=== PATIENT | female | born 1990 | race Caucasian/White ===

== ENCOUNTER 2017-05-04 09:39 | Emergency (ER) | payer OTHER ==
[~2017-05-04] VITALS: Ht 185.4 cm; Wt 147.4 kg
[~2017-05-04 09:39] MED LIST: Bactrim Ds Tab1 EACH PO; CODACE30 PO; NEOPOLHYDS OT
[2017-05-04] MEDS ORDERED: CYCL10 PO (11:01)
[2017-05-04] MEDS ORDERED: Mobic15 MG PO (11:01)
== END 2017-05-04 11:05 | disposition home or self-care (01) ==
LOC: ER 09:39
DX: M54.5 Low back pain (principal); E66.01 Morbid (severe) obesity due to excess calories; Z68.41 Body mass index [BMI] 40.0-44.9, adult
CPT/HCPCS: 99283

== ENCOUNTER → 2017-07-06 | Outpatient (CLI) | payer OTHER ==
[~2017-07-06] MED LIST changes: +CYCL10 PO; +Mobic15 MG PO
[2017-07-06 16:38] LABS: Specimen Source CERVIX
[2017-07-07 10:01] LABS: Source Cervix
[2017-07-08 12:03] LABS: HPV Genotype 16 Not Detected (NOTDET); HPV Genotype 18 Not Detected (NOTDET)
[2017-07-15 08:16] LABS: HPV High Risk Other Not Detected (NOTDET)
[2017-07-18 06:57] LABS: Source Cervix
== END | disposition home or self-care (01) ==
LOC: LAB SHORT 16:32 → OLS 16:32
PROVIDERS: Nurse Practitioner Women's Health
DX: Z12.4 Encounter for screening for malignant neoplasm of cervix (principal); Z11.3 Encounter for screening for infections with a predominantly sexual mode of transmission
CPT/HCPCS: 87491; 87591; 87624; G0123

== ENCOUNTER 2018-03-15 09:24 | Emergency (ER) | payer SELFPAY ==
[~2018-03-15] VITALS: Ht 185.4 cm; Wt 186.0 kg
[2018-03-15] MEDS ORDERED: NEXPLANON68 MG SQ (10:14)
[2018-03-15 10:17] LABS: BASOPHILS ABSOLUTE AUTO 0.03 K/mm3 (0.00-0.23); BASOPHILS PERCENT AUTO 0 % (0-2); EOSINOPHILS ABSOLUTE AUTO 0.09 K/mm3 (0.00-0.68); EOSINOPHILS PERCENT AUTO 1 % (0-6); Hematocrit 42.5 % (33.0-51.0); Hemoglobin 13.8 g/dL (11.5-16.0); IMMATURE GRAN ABSOLUTE AUTO 0.04 K/mm3 (0.00-0.10); IMMATURE GRAN PERCENT AUTO 0 % (0-1); LYMPHOCYTES ABSOLUTE AUTO 2.24 K/mm3 (0.84-5.20); LYMPHOCYTES PERCENT AUTO 19 % (21-46); MONOCYTES ABSOLUTE AUTO 0.59 K/mm3 (0.16-1.47); MONOCYTES PERCENT AUTO 5 % (4-13); Mean Corpuscular HGB 28.2 pg (26.0-34.0); Mean Corpuscular HGB Conc 32.5 g/dL (31.5-36.5); Mean Corpuscular Volume 87 fL (80-100); Mean Platelet Volume 9.9 fL (9.1-12.4); NEUTROPHILS ABSOLUTE AUTO 8.69 K/mm3 (1.96-9.15); NEUTROPHILS PERCENT AUTO 74 % (41-73); Platelet Count 253 K/mm3 (150-400); RDW Coefficient Variation 13.2 % (11.7-14.2); RDW Standard Deviation 41.4 fL (35.1-46.3); White Blood Cell Count 11.68 K/mm3 (4.00-11.30)
[2018-03-15 10:33] LABS: Anion Gap 5 mmol/L (6-16); Blood Urea Nitrogen 11 mg/dL (8-24); Bun/Creatinine Ratio 18.7 (12.0-20.0); CO2, Blood 28 mmol/L (21-32); Calcium, Blood 8.7 mg/dL (8.5-10.1); Chloride, Blood 103 mmol/L (98-108); Creatinine, Blood 0.59 mg/dL (0.40-1.00); Glomerular Filtration Rate >60 (60-); Glucose, Blood 129 mg/dL (70-99); Potassium, Blood 3.8 mmol/L (3.5-5.5); Sodium, Blood 136 mmol/L (136-145)
== END 2018-03-15 11:35 | disposition home or self-care (01) ==
LOC: ER 09:24
PROVIDERS: Emergency Medicine
DX: R07.89 Other chest pain (principal); Z79.899 Other long term (current) drug therapy
CPT/HCPCS: 36415; 71046; 80048; 81025; 85025; 85379; 93005; 93010; 96374; 99285-25; J1885

== ENCOUNTER → 2018-07-12 | Outpatient (CLI) | payer OTHER ==
[~2018-07-12] MED LIST changes: +NEXPLANON68 MG SQ
[2018-07-14 22:07] LABS: CHLAMYDIA TRACHOMATIS, NAA Negative (Negative); NEISSERIA GONORRHOEAE, NAA Negative (Negative)
== END | disposition home or self-care (01) ==
LOC: LAB SHORT 17:33 → LAB 17:33
PROVIDERS: Nurse Practitioner Women's Health
DX: Z11.3 Encounter for screening for infections with a predominantly sexual mode of transmission (principal)
CPT/HCPCS: 87491; 87591

== ENCOUNTER 2018-10-12 16:44 | Emergency (ER) | payer OTHER ==
[~2018-10-12] VITALS: Ht 185.4 cm; Wt 190.5 kg
[2018-10-23] MEDS ORDERED: LOSARTAN-HCTZ1 EACH PO (16:17)
[2018-10-23] MEDS ORDERED: CHOL10002 PO (16:18)
[2018-10-23] MEDS ORDERED: METF500 PO (16:19)
== END 2018-10-12 17:42 | disposition home or self-care (01) ==
LOC: ER 16:44
DX: S93.402A Sprain of unspecified ligament of left ankle, initial encounter (principal); I10 Essential (primary) hypertension; E11.9 Type 2 diabetes mellitus without complications; W01.0XXA Fall on same level from slipping, tripping and stumbling without subsequent striking against object, initial encounter
CPT/HCPCS: 73610; 99283-25

== ENCOUNTER 2018-10-25 08:19 | Day surgery (SDC) | payer OTHER ==
[~2018-10-25] VITALS: Ht 182.9 cm; Wt 200.5 kg
[~2018-10-25 08:19] MED LIST changes: +CHOL10002 PO; +LOSARTAN-HCTZ1 EACH PO; +METF500 PO
--- NOTE | 2018-10-25 09:04 | NUR ---
History, Chart, Medications and Allergies reviewed before start of procedure. Lungs clear T/O to Auscultation. Patient confirms NPO status and agrees with scheduled surgery. Pre-Op teaching done. Pt verbalizes understanding. Patient States Post-Procedure ride home has been arranged.
--- NOTE | 2018-10-25 11:44 | NUR ---
10/25/18 1144 Sushila Martinez ALL COUNTS CORRECT.
--- NOTE | 2018-10-25 13:04 | NUR ---
1225: PT ARRIVED TO STEP. REPORTS 3/10 PAIN. ICE TO LLE. PREET PO WELL.
== END 2018-10-25 22:43 | disposition home or self-care (01) ==
LOC: ORSCMMR 08:19 → ORD 09:45 → ORSCMMR 09:45 → ORSCSDS 09:45 → ORSCMMR 22:43
PROVIDERS: Podiatrist Foot & Ankle Surgery
PROC: 0SGL04Z Fusion of Left Tarsometatarsal Joint with Internal Fixation Device, Open Approach (ICD-10-PCS; principal; 2018-10-25 09:45)
PROC: 0QSP04Z Reposition Left Metatarsal with Internal Fixation Device, Open Approach (ICD-10-PCS; principal; 2018-10-25 09:45)
DX: S92.322A Displaced fracture of second metatarsal bone, left foot, initial encounter for closed fracture (principal); S92.342A Displaced fracture of fourth metatarsal bone, left foot, initial encounter for closed fracture; I10 Essential (primary) hypertension; E11.9 Type 2 diabetes mellitus without complications; Z79.899 Other long term (current) drug therapy; E66.01 Morbid (severe) obesity due to excess calories; Z68.43 Body mass index [BMI] 50.0-59.9, adult
CPT/HCPCS: 82947; C1713; C1769; J0690; J1100; J1885; J2250; J2405; J2704; J3010; J7120

== ENCOUNTER → 2024-04-18 | Outpatient (CLI) | payer OTHER ==
[~2024-04-18] MED LIST changes: +ASPI81CH PO; +HUMALOG KW100 UNIT/1; +HUMALOG KW100 UNIT/1 SC; +HUMALOG100 UNIT/1 SC; +HUMULIN N100 UNIT/6 SC; +IBUP800 PO; +LABE100 PO; +LABE200 PO; +SERT50 PO
[2024-04-24 14:57] LABS: HPV HIGH RISK BY TMA Not Detected; HPV SOURCE Cervical
== END ==
LOC: LAB 17:26 → LAB SHORT 17:26
PROVIDERS: Registered Nurse
DX: Z01.419 Encounter for gynecological examination (general) (routine) without abnormal findings (principal)
CPT/HCPCS: 87624; G0123

== ENCOUNTER → 2025-03-14 | Outpatient (CLI) | payer OTHER ==
[2025-03-14 20:50] LABS: Creatinine, Urine Random 63.8 mg/dL (27.00-270.00); Protein, Urine Random 14.3 mg/dL (0.0-11.9); Protein/Creat Ratio, Ur Random 0.2
== END ==
LOC: LAB SHORT 13:31 → LAB 13:31
PROVIDERS: Obstetrics & Gynecology
DX: O10.919 Unspecified pre-existing hypertension complicating pregnancy, unspecified trimester (principal)
CPT/HCPCS: 82570; 84156